=== PATIENT | male | born 1955 | race African-American/Black ===

== ENCOUNTER 2016-10-13 14:34 | Inpatient (IN) | payer MEDICAID ==
[~2016-10-13] VITALS: Ht 160 cm; Wt 70.3 kg
[~2016-10-13 14:34] MED LIST: ASA; ATENOLOL; COLACE; LASIX
[2016-10-13] MEDS ORDERED: SODIUM CHLORIDE 0.9% 1,000 ML IV ONE (15:47)
[2016-10-13] MEDS ORDERED: HYDROCODONE/ACETAMINOPHEN 5/325MG TABLET PO ONE (16:15)
[2016-10-13] MEDS ORDERED: MORPHINE SULFATE 4 MG/ML CPJ (NOT FOR IM USE) IV ONE ×2 (17:45→20:00)
[2016-10-13 21:45] VITALS: BP 116/64
[2016-10-13] MEDS ORDERED: ONDANSETRON HCL 4MG/2ML VIAL IV PRN (22:15)
[2016-10-13] MEDS ORDERED: CLONIDINE 0.1MG TABLET PO PRN (22:15)
[2016-10-13] MEDS ORDERED: MAGNESIUM/ALUMINUM HYDROXIDE/SIMETHICONE 30ML UDC PO PRN (22:15)
[2016-10-13] MEDS ORDERED: HYDROCODONE/ACETAMINOPHEN 5/325MG TABLET PO PRN (22:15)
[2016-10-13] MEDS ORDERED: MORPHINE SULFATE 2 MG/ML CPJ (NOT FOR IM USE) IV PRN (22:15)
[2016-10-13] MEDS ORDERED: IPRATROPIUM/ALBUTEROL 0.5-3(2.5)MG/3ML NEB INH PRN (22:15)
[2016-10-13] MEDS ORDERED: ACETAMINOPHEN 325MG TABLET PO PRN (22:15)
[2016-10-13 23:00] VITALS: BP 118/88
[2016-10-14] VITALS: BP 111/79
[2016-10-14] MEDS: MORPHINE SULFATE 4 MG/ML CPJ (NOT FOR IM USE) IV PRN ×3 (00:20→17:01)
[2016-10-14 00:23] LABS: BASOPHILS % 0.5 % (0.0-2.0); EOSINOPHILS % 1.4 % (0.0-5.0); HEMATOCRIT. 26.9 % (42.0-52.0); HEMOGLOBIN. 8.6 g/dL (14.0-18.0); LYMPHOCYTES % 9.5 % (20.0-50.0); MEAN CORPUSCULAR HEMOGLOBIN 24.3 pg (28.0-32.0); MEAN CORPUSCULAR VOLUME 75.4 fL (80.0-94.0); MEAN PLATELET VOLUME 6.9 fl (7.4-10.4); MONOCYTES % 11.3 % (2.0-8.0); NEUTROPHILS % 77.3 % (40.0-76.0); PLATELET 442 x1000/uL (130-400); RED BLOOD CELL COUNT 3.56 mill/uL (4.7-6.1); RED CELL DISTRIBUTION WIDTH 16.9 % (11.6-14.6)
[2016-10-14 00:27] LABS: CHLORIDE 99 mEq/L (98-107)
[2016-10-14 00:32] LABS: CARBON DIOXIDE 32 mEq/L (21-32)
[2016-10-14] MEDS ORDERED: POTASSIUM CHLORIDE 20MEQ TABLET SR PO ONE (01:00)
[2016-10-14 04:00] VITALS: BP 125/84
[2016-10-14 06:47] LABS: *AMPHETAMINES SCREEN URINE NEGATIVE (NEGATIVE); *BARBITURATES SCREEN URINE NEGATIVE (NEGATIVE); *BENZODIAZEPINES SCREEN URINE NEGATIVE (NEGATIVE); *COCAINE SCREEN URINE PRESUMTIVE POSITIVE (NEGATIVE); CANNABINOID URINE SCREEN NEGATIVE (NEGATIVE); METHADONE URINE SCREEN NEGATIVE (NEGATIVE); OPIATES URINE SCREEN PRESUMTIVE POSITIVE (NEGATIVE); PHENCYCLIDINE URINE SCREEN NEGATIVE (NEGATIVE)
[2016-10-14 08:00] VITALS: BP 110/88
[2016-10-14 09:21] LABS: BASOPHILS % 0.6 % (0.0-2.0); EOSINOPHILS % 1.9 % (0.0-5.0); HEMATOCRIT. 29.7 % (42.0-52.0); HEMOGLOBIN. 9.5 g/dL (14.0-18.0); LYMPHOCYTES % 9.4 % (20.0-50.0); MEAN CORPUSCULAR HEMOGLOBIN 24.4 pg (28.0-32.0); MEAN CORPUSCULAR VOLUME 76.4 fL (80.0-94.0); MEAN PLATELET VOLUME 7.1 fl (7.4-10.4); MONOCYTES % 10.4 % (2.0-8.0); NEUTROPHILS % 77.7 % (40.0-76.0); PLATELET 448 x1000/uL (130-400); RED BLOOD CELL COUNT 3.88 mill/uL (4.7-6.1); RED CELL DISTRIBUTION WIDTH 17.7 % (11.6-14.6)
[2016-10-14 10:59] LABS: CREATINE KINASE MB FRACTION 5.2 ng/mL (0.5-3.6); TROPONIN I 0.21 ng/mL (0.00-0.04)
[2016-10-14 12:00] VITALS: BP 117/80
[2016-10-14] MEDS ORDERED: ASPI-1159 PO (14:07)
[2016-10-14] MEDS ORDERED: TRIA15OI8 TP (14:07)
[2016-10-14] MEDS ORDERED: METO25TA6 PO (14:07)
[2016-10-14] MEDS ORDERED: FURO40TA5 PO (14:07)
[2016-10-14] MEDS ORDERED: ATOR80TA PO (14:07)
[2016-10-14] MEDS ORDERED: GABA-531 PO (14:07)
[2016-10-14] MEDS ORDERED: BENA20TA3 PO (14:07)
[2016-10-14] MEDS: SPIRONOLACTONE 25MG TABLET PO SCH (14:27)
[2016-10-14] MEDS: LISINOPRIL 5MG TABLET PO SCH (14:28)
[2016-10-14] MEDS ORDERED: MEDICATION NOT ON FORMULARY EA (Atorvastatin Calcium (Lipitor) 80 MG) PO SCH (15:30)
[2016-10-14] MEDS ORDERED: METOPROLOL TARTRATE 25MG TABLET PO SCH (17:00)
[2016-10-14] MEDS: GABAPENTIN 300MG CAPSULE PO SCH (17:04)
[2016-10-14] MEDS: FUROSEMIDE 20MG TABLET PO SCH (17:08)
[2016-10-14 18:16] LABS: BASOPHILS % 0.9 % (0.0-2.0); EOSINOPHILS % 3.2 % (0.0-5.0); HEMATOCRIT. 28.7 % (42.0-52.0); HEMOGLOBIN. 9.2 g/dL (14.0-18.0); LYMPHOCYTES % 10.4 % (20.0-50.0); MEAN CORPUSCULAR HEMOGLOBIN 24.3 pg (28.0-32.0); MEAN CORPUSCULAR VOLUME 76.4 fL (80.0-94.0); MEAN PLATELET VOLUME 7.2 fl (7.4-10.4); MONOCYTES % 12.4 % (2.0-8.0); NEUTROPHILS % 73.1 % (40.0-76.0); PLATELET 432 x1000/uL (130-400); RED BLOOD CELL COUNT 3.76 mill/uL (4.7-6.1); RED CELL DISTRIBUTION WIDTH 17.2 % (11.6-14.6)
[2016-10-14 18:25] LABS: CARBON DIOXIDE 30 mEq/L (21-32); CHLORIDE 98 mEq/L (98-107)
[2016-10-14 18:32] LABS: CREATINE KINASE 490 IU/L (39-308); CREATINE KINASE MB FRACTION 6.6 ng/mL (0.5-3.6); TROPONIN I 0.21 ng/mL (0.00-0.04)
[2016-10-14 20:00] VITALS: BP 95/47
[2016-10-14] MEDS: POTASSIUM CHLORIDE 20MEQ TABLET SR PO NR (20:06)
[2016-10-14 20:42] LABS: TOTAL IRON BINDING CAPACITY 195 ug/dL (250-450)
[2016-10-14] MEDS ORDERED: ATORVASTATIN CALCIUM 40MG TABLET PO SCH (21:00)
[2016-10-14] MEDS ORDERED: EPOETIN ALFA 10000UNITS/ML VIAL SUBCUT NR (21:00)
[2016-10-14 21:06] LABS: FOLIC ACID (FOLATE) SERUM 5.4 ng/mL (>5.38)
[2016-10-14] MEDS ORDERED: POTASSIUM CHLORIDE INJ 40 MEQ in DEXT 5% WATER 250 ML IV NR (22:30)
[2016-10-14] MEDS ORDERED: SODIUM CHLORIDE 0.9% 250 ML IV ONE (23:30)
[2016-10-15] VITALS (7 sets, daily range): BP systolic 93–107; BP diastolic 59–67
[2016-10-15] MEDS: POTASSIUM CHLORIDE 20MEQ TABLET SR PO NR (00:30)
[2016-10-15] MEDS: MORPHINE SULFATE 4 MG/ML CPJ (NOT FOR IM USE) IV PRN ×2 (00:43→15:32)
[2016-10-15] MEDS: FUROSEMIDE 20MG TABLET PO SCH (06:48)
[2016-10-15] MEDS: LISINOPRIL 5MG TABLET PO SCH (08:00)
[2016-10-15] MEDS: SPIRONOLACTONE 25MG TABLET PO SCH (08:00)
[2016-10-15] MEDS: GABAPENTIN 300MG CAPSULE PO SCH ×3 (08:00→16:01)
[2016-10-15] MEDS ORDERED: ATORVASTATIN CALCIUM 20MG TABLET PO SCH (21:00)
[2016-10-16] MEDS ORDERED: FUROSEMIDE 20MG TABLET PO SCH (09:00)
== END 2016-10-15 21:37 | disposition home or self-care (01) | DRG 340 ==
LOC: ER 14:42 → 6EST 17:34 → ENRESERV 20:15 → 6WST 10-14 13:31
PROVIDERS: ADMIT Internal Medicine; ATTEND Internal Medicine
DX: S72.402A Unspecified fracture of lower end of left femur, initial encounter for closed fracture (principal); L89.224 Pressure ulcer of left hip, stage 4; I11.0 Hypertensive heart disease with heart failure; I42.0 Dilated cardiomyopathy; I27.2 Other secondary pulmonary hypertension; I50.9 Heart failure, unspecified; I42.9 Cardiomyopathy, unspecified; L89.90 Pressure ulcer of unspecified site, unspecified stage; E78.5 Hyperlipidemia, unspecified; E87.6 Hypokalemia; Z89.512 Acquired absence of left leg below knee; Z89.511 Acquired absence of right leg below knee; F14.90 Cocaine use, unspecified, uncomplicated; I25.10 Atherosclerotic heart disease of native coronary artery without angina pectoris; I73.9 Peripheral vascular disease, unspecified; J44.9 Chronic obstructive pulmonary disease, unspecified; W05.0XXA Fall from non-moving wheelchair, initial encounter; Y93.89 Activity, other specified; Y92.89 Other specified places as the place of occurrence of the external cause; Y99.8 Other external cause status; Z79.899 Other long term (current) drug therapy; Z82.49 Family history of ischemic heart disease and other diseases of the circulatory system; Z91.19 Patient's noncompliance with other medical treatment and regimen; D63.8 Anemia in other chronic diseases classified elsewhere; Z53.29 Procedure and treatment not carried out because of patient's decision for other reasons
CPT/HCPCS: 36415; 73502; 73552; 80048; 80061; 80305; 82378; 82550; 82553; 82607; 82728; 82746; 83540; 83550; 83615; 83735; 84443; 84484; 85025; 85044; 85651; 93005; 93970; 96361; 96374; 96376; 99285; J0885; J2270; J3480; J7030; J7050; J7060

== ENCOUNTER 2016-12-09 09:11 | Emergency (ER) | payer MEDICAID ==
[~2016-12-09] VITALS: Ht 162.6 cm; Wt 50.0 kg
[2016-12-09] MEDS ORDERED: TRAMADOL 50MG TABLET PO ONE (11:00)
[2016-12-09] MEDS ORDERED: MORPHINE SULFATE 4 MG/ML CPJ (NOT FOR IM USE) IV ONE (11:15)
[2016-12-09] MEDS ORDERED: ONDANSETRON HCL 4MG/2ML VIAL IV ONE (11:15)
[2016-12-09 11:26] LABS: BASOPHILS % 0.8 % (0.0-2.0); EOSINOPHILS % 3.6 % (0.0-5.0); HEMATOCRIT. 30.1 % (42.0-52.0); HEMOGLOBIN. 9.5 g/dL (14.0-18.0); MEAN CORPUSCULAR HEMOGLOBIN 22.1 pg (28.0-32.0); MEAN CORPUSCULAR VOLUME 70.2 fL (80.0-94.0); MONOCYTES % 11.9 % (2.0-8.0); NEUTROPHILS % 65.7 % (40.0-76.0); PLATELET 414 x1000/uL (130-400); RED BLOOD CELL COUNT 4.28 mill/uL (4.7-6.1); RED CELL DISTRIBUTION WIDTH 19.3 % (11.6-14.6)
[2016-12-09 11:34] LABS: CHLORIDE 103 mEq/L (98-107)
[2016-12-09 11:39] LABS: CARBON DIOXIDE 28 mEq/L (21-32)
[2016-12-09 14:20] VITALS: BP 119/76
== END 2016-12-09 14:22 | disposition home or self-care (01) ==
LOC: ER 09:16
DX: L89.309 Pressure ulcer of unspecified buttock, unspecified stage (principal); G89.29 Other chronic pain; I50.9 Heart failure, unspecified; J44.9 Chronic obstructive pulmonary disease, unspecified; I10 Essential (primary) hypertension; I99.8 Other disorder of circulatory system; Z89.9 Acquired absence of limb, unspecified
CPT/HCPCS: 36415; 80048; 85025; 96374; 96375; 99284; J2270; J2405

== ENCOUNTER 2017-03-26 19:24 | Inpatient (IN) | payer MEDICAID ==
[~2017-03-26] VITALS: Ht 134.6 cm; Wt 52.6 kg
[2017-03-26] MEDS ORDERED: ASPIRIN 81MG TABLET PO STA (20:19)
[2017-03-26] MEDS ORDERED: ALBUTEROL (0.083%) 2.5MG/3ML NEB HHN STA (20:19)
[2017-03-26] MEDS ORDERED: IPRATROPIUM BROMIDE (0.02%) 0.5MG/2.5ML NEB HHN STA (20:19)
[2017-03-26] MEDS ORDERED: METHYLPREDNISOLONE SOD SUCC 125 MG/2 ML VIAL IV STA (20:19)
[2017-03-26] MEDS ORDERED: SODIUM CHLORIDE 0.9% 1000ML BAG (SEPSIS BOLUS) IV ONE (20:30)
[2017-03-26] MEDS ORDERED: LEVOFLOXACIN 750MG PREMIX 150 ML IV ONE (20:30)
[2017-03-26] MEDS ORDERED: ALBUTEROL (0.5%) 2.5MG/0.5ML NEB HHN ONE (20:58)
[2017-03-26] MEDS ORDERED: VANCOMYCIN 1 G PREMIX 200 ML IV SCH (21:30)
[2017-03-26] MEDS ORDERED: DIPHENHYDRAMINE 50MG/ML VIAL IV ONE (21:30)
[2017-03-26] MEDS ORDERED: PIPERACILLIN/TAZ 3.375G PREMIX 50 ML IV ONE (21:30)
[2017-03-26 21:51] LABS: BASOPHILS % 0.9 % (0.0-2.0); HEMATOCRIT. 33.5 % (42.0-52.0); HEMOGLOBIN. 10.4 g/dL (14.0-18.0); LYMPHOCYTES % 20.2 % (20.0-50.0); MEAN CORPUSCULAR VOLUME 71.3 fL (80.0-94.0); MEAN PLATELET VOLUME 7.4 fl (7.4-10.4); MONOCYTES % 8.4 % (2.0-8.0); NEUTROPHILS % 67.5 % (40.0-76.0); PLATELET 314 x1000/uL (130-400); RED CELL DISTRIBUTION WIDTH 20.7 % (11.6-14.6)
[2017-03-26 21:55] LABS: INR 1.4; PARTIAL THROMBOPLASTIN TIME 31.7 sec (23.4-31.0); PROTHROMBIN TIME 14.4 sec (9.4-11.6)
[2017-03-26 21:56] LABS: CHLORIDE 104 mEq/L (98-107)
[2017-03-26 21:59] LABS: CARBON DIOXIDE 26 mEq/L (21-32)
[2017-03-26 22:05] LABS: TROPONIN I 0.07 ng/mL (0.00-0.04)
[2017-03-27] VITALS (7 sets, daily range): BP systolic 90–113; BP diastolic 58–75
[2017-03-27] MEDS ORDERED: DIPHENHYDRAMINE 50MG/ML VIAL IV PRN (02:30)
[2017-03-27] MEDS ORDERED: ONDANSETRON HCL 4MG/2ML VIAL IV PRN (02:30)
[2017-03-27] MEDS ORDERED: DOCUSATE SODIUM 100MG CAPSULE PO PRN (02:30)
[2017-03-27] MEDS ORDERED: CLONIDINE 0.1MG TABLET PO PRN (02:30)
[2017-03-27] MEDS ORDERED: IPRATROPIUM/ALBUTEROL 0.5-3(2.5)MG/3ML NEB INH PRN (02:30)
[2017-03-27] MEDS ORDERED: ACETAMINOPHEN 325MG TABLET PO PRN (02:30)
[2017-03-27 08:27] LABS: CREATINE KINASE MB FRACTION 3.2 ng/mL (0.5-3.6); TROPONIN I 0.03 ng/mL (0.00-0.04)
[2017-03-27] MEDS: IPRATROPIUM/ALBUTEROL 0.5-3(2.5)MG/3ML NEB INH SCH ×3 (08:42→22:11)
[2017-03-27] MEDS: AMLODIPINE 10MG TABLET PO SCH (09:00)
[2017-03-27] MEDS: FUROSEMIDE 40MG/4ML VIAL IV SCH (09:38)
[2017-03-27] MEDS: ASPIRIN 81MG EC TABLET PO SCH (09:38)
[2017-03-27] MEDS: ENOXAPARIN 40MG/0.4ML SYR SUBCUT SCH (09:39)
[2017-03-27] MEDS ORDERED: LEVOFLOXACIN 500MG PREMIX 100 ML IV SCH (21:00)
[2017-03-27] MEDS ORDERED: CEFTRIAXONE 1 G PREMIX 50 ML IV SCH (21:00)
[2017-03-28] VITALS: BP 91/50
[2017-03-28] MEDS: IPRATROPIUM/ALBUTEROL 0.5-3(2.5)MG/3ML NEB INH SCH ×2 (03:27→08:45)
[2017-03-28 04:00] VITALS: BP 110/79
[2017-03-28 08:00] VITALS: BP 118/78
[2017-03-28] MEDS: ENOXAPARIN 40MG/0.4ML SYR SUBCUT SCH (09:00)
[2017-03-28] MEDS: FUROSEMIDE 40MG/4ML VIAL IV SCH (09:24)
[2017-03-28] MEDS: ASPIRIN 81MG EC TABLET PO SCH (09:25)
[2017-03-28] MEDS: AMLODIPINE 10MG TABLET PO SCH (09:25)
[2017-03-28 11:12] VITALS: BP 118/78
[2017-03-28 12:00] VITALS: BP 102/74
== END 2017-03-28 13:16 | disposition home or self-care (01) | DRG 140 ==
LOC: ER 19:24 → 5WST 20:51 → EDBEDREQ 03-27 00:09 → ENRESERV 03-27 00:26 → SUPCPDRO 03-27 02:16
PROVIDERS: ADMIT Hospitalist; ATTEND Hospitalist
DX: J44.1 Chronic obstructive pulmonary disease with (acute) exacerbation (principal); E43 Unspecified severe protein-calorie malnutrition; I11.0 Hypertensive heart disease with heart failure; I50.9 Heart failure, unspecified; Z89.611 Acquired absence of right leg above knee; I73.9 Peripheral vascular disease, unspecified; Z87.891 Personal history of nicotine dependence; Z89.511 Acquired absence of right leg below knee; Z89.512 Acquired absence of left leg below knee; Z89.612 Acquired absence of left leg above knee; Z88.1 Allergy status to other antibiotic agents
CPT/HCPCS: 36415; 71010; 80053; 82550; 82553; 83605; 83880; 84484; 85025; 85610; 85730; 86850; 86900; 87040; 93005; 94640; 96365; 96366; 96375; 99291; J0696; J1200; J1650; J1940; J1956; J2543; J2930; J3370; J7030; J7040; J7611; J7620